=== PATIENT | female | born 2000 | race Caucasian/White ===

== ENCOUNTER 2024-03-27 14:37 | Emergency (ER) | payer OTHER, SELFPAY ==
[2024-03-27 14:44] VITALS: BP 124/71; PULSE 82; RESP 16; TEMP 36.8; O2SAT 100
--- NOTE | 2024-03-27 14:59 | ED_ITS ---
HPI - Female Genitourinary General Chief complaint: Urogenital-Female Stated complaint: STD Time Seen by Provider: 03/27/24 14:59 Source: patient, RN notes reviewed and old records reviewed Mode of arrival: ambulatory Limitations: no limitations History of Present Illness HPI Narrative: Patient who is sexually active, does not always use protection, presents with complaints fishy smelling vaginal discharge that is been present for about 4 days. She reports that she has an IUD, she is not worried about . She does report that symptoms are very different than that of yeast infections, which she has had in the past. She denies any abdominal pain. She denies any vaginal bleeding. Related Data Home Medications ?Medication ?Instructions ?Recorded ?Confirmed ?Last Taken ?Type bupropion HCl 300 mg 24 hr tablet, mg PO 03/27/24 Unknown History extended release sertraline 25 mg tablet mg 03/27/24 Unknown History Allergies Allergy/AdvReac Type Severity Reaction Status Date / Time No Known Allergies Allergy Verified 03/27/24 15:12 Review of Systems Review of Systems: All systems reviewed & are unremarkable except as noted in HPI and below Constitutional: Constitutional: Reports no additional constitutional complaints ENT: Reports system reviewed and no additional complaints, except as documented Cardiovascular: Cardiovascular: Reports no additional cardiovascular complaints Respiratory: Respiratory: Reports no additional respiratory complaints Gastrointestinal: Gastrointestinal: Reports no additional gastrointestinal complaints Genitourinary: Genitourinary: Reports no additional female genitourinary complaints and Reports as per HPI [facility] Comments At the time of my signature, I reviewed and agree with the nursing past medical, surgical, social, and family history. There is no relevant family history pertinent to the patient complaint. Exam Const: General: cooperative, no acute distress, alert and awake Orientat ion/consciousness: oriented to person, oriented to place and oriented to time HENMT: Head: normal to inspection Resp: Effort & Inspection: normal respiratory effort and able to speak in complete sentences Auscultation: clear to auscultation bilaterally, no crackles, no rales, no rhonchi and no wheezes Cardio: Palpation: normal PMI Rate: regular rate Rhythm: regular rhythm Heart sounds: S1 normal heart sound present and S2 normal heart sound present : General: Yes bladder normal to palpation and Yes no CVA tenderness Neuro: General: oriented to person, oriented to place and oriented to time Cranial nerves: Yes CN's II-XII intact bilaterally Psych: Appearance: grossly normal Thought process: Normal thought process present Insight: Good insight present (Psych) Judgement: Good judgement present (Psych) Course Course Level of Care: Express Care Visit Vital Signs Vital signs: Vital Signs Temperature 98.2 F 03/27/24 14:44 Pulse Rate 82 03/27/24 14:44 Respiratory Rate 16 03/27/24 14:44 Blood Pressure 124/71 03/27/24 14:44 Pulse Oximetry 100 03/27/24 14:44 Oxygen Delivery Room Air 03/27/24 14:44 Temperature 98.2 F 03/27/24 14:44 Pulse Rate 82 03/27/24 14:44 Respiratory Rate 16 03/27/24 14:44 Blood Pressure 124/71 03/27/24 14:44 Pulse Oximetry 100 03/27/24 14:44 Oxygen Delivery Room Air 03/27/24 14:44 Reviewed MDM - Female Genitourinary MDM Narrative Medical decision making narrative: Sexually active 23-year-old, screen for gonorrhea, chlamydia, trich. Treat presumptively for BV. Emergency department for new or worse symptoms. Discharge instructions reviewed with patient, as well as provided in writing per nursing staff. The instructions also include specific and strict return/GO TO THE ER as well as f/u information. All questions have been answered, and the patient deny any further questions with discharge and discharge plan. Some parts of this dictation were generated by voice recognition software and may contain typographical and/or grammatical inaccuracies. Differential Diagnosis Differential diagnosis: Likely bacterial vaginosis and trichomoniasis Medical Records Attestation: I reviewed the patient's medical records. Discharge Plan Discharge Clinical Impression: Bacterial vaginosis Patient Disposition: Home, Self-Care Condition: Stable Instructions: Antibiotic Form, Bacterial Vaginosis (ED) Patient Language: Czech Prescriptions: New metronidazole 500 mg tablet 500 mg PO Q12H Qty: 14 0RF No Action bupropion HCl 300 mg tablet extended release 24 hr PO sertraline 25 mg tablet Follow-up/Referrals: Baltazar Cueva MD [Primary Care Provider] - Time of Disposition: 15:17
[2024-03-28 09:35] LABS: Trichomonas Vag PCR NOT DETECTED (NOT DETECTE)
[2024-03-28 10:00] LABS: Chlamydia trachomatis NOT DETECTED (NOT DETECTE); Neisseria gonorrhoeae PCR NOT DETECTED (NOT DETECTE)
== END 2024-03-27 15:25 | disposition home or self-care (01) ==
PROVIDERS: Emergency Provider Nurse Practitioner Family; PCP Pediatrics
DX: N76.0 Acute vaginitis (principal); Z11.3 Encounter for screening for infections with a predominantly sexual mode of transmission; Z97.5 Presence of (intrauterine) contraceptive device
CPT/HCPCS: 87491; 87591; 87661; 99213; G0463

== ENCOUNTER 2025-02-27 08:17 | Emergency (ER) | payer OTHER, SELFPAY ==
--- NOTE | 2025-02-27 08:26 | ED_ITS ---
HPI - Female Genitourinary General Chief complaint: Urogenital-Female Stated complaint: UTI Source: patient Mode of arrival: ambulatory Limitations: no limitations History of Present Illness HPI Narrative: this is a 24 y/o female that presents to urgent care with reports of frequency and dsyuria since 02/25/25. She has been taking AZO since. denies any distress otherwise MD elicited complaint: dysuria and UTI Quality of pain: burning Consistency: intermittent Vaginal discharge: none Vaginal bleeding: none Urinary symptoms: Dysuria, Urgency and Frequency Exacerbating factors: none Relieving factors: none Associated symptoms: denies other symptoms Treatment prior to arrival: OTC urinary analgesics Sexual activity: No Patient : No Related Data Home Medications ?Medication ?Instructions ?Recorded ?Confirmed ?Last Taken ?Type bupropion HCl 300 mg 24 hr tablet, mg PO 03/27/24 Unk nown History extended release sertraline 25 mg tablet mg 03/27/24 Unknown History Allergies Allergy/AdvReac Type Severity Reaction Status Date / Time No Known Allergies Allergy Verified 02/27/25 08:18 Review of Systems Review of Systems: All systems reviewed & are unremarkable except as noted in HPI and below Exam Const: General: healthy appearing Nutritional Appearance: well nourished Orientation/consciousness: patient oriented x3 Limitations: no limitations HENMT: Head: normal to inspection Ears: external ears normal Face/Nose/Sinus: Normal external nose present Face and sinus: normal facial exam Mouth: Yes Normal oral and palatal mucosa present Teeth and gingiva: dentition normal Throat: posterior oropharynx normal Eyes: Conjunctivae: conjunctivae normal Pupils: Equal, round and reactive pupils present EOM: EOMs intact bilaterally Direct Ophthalmoscopy: no photophobia Neck: Neck: normal visual inspection Resp: Effort & Inspection: normal respiratory effort Auscultation: clear to auscultation bilaterally Cardio: Rate: regular rate Rhythm: regular rhythm GI: GI Palp: Yes Soft to palpation Auscultation: normal bowel sounds : General: Yes Bladder palpation abnormal tender and Yes no CVA tenderness Back/Spine/Pelvis: Back: no CVA tenderness Skin: General skin exam: normal color Rashes: no rashes Wounds: no wounds Neuro: General: patient oriented x3 Cranial nerves: Yes Nystagmus not present Speech: normal speech Gait exam (Neuro): Normal gait present Extrem: General: normal to inspection Psych: Appearance: grossly normal Mental Status: mental status grossly normal Affect: normal affect Course Course Emergency Course: this is a 24 y/o female that presents to urgent care with reports of frequency and dsyuria since 02/25/25. She has been taking AZO since. denies any distress otherwise Unstable arrival she is afebrile. Patient has been taking azo per package instructions for 48 hours, urine dip would not be appropriate, so urine culture was sent for evaluation. educated patient that we will pre treat her with cefdinir 300 mg p.o. b.i.d. for the next 7 days, await culture results. Educated to continue with azo, increased fluids, follow-up with primary care provider with any worsening symptoms or return to the emergency department. Answered all questions to her satisfaction she is agreeable with plan. She denies any further needs or concerns to be addressed prior to discharge Level of Care: Express Care Visit Vital Signs Vital signs: Vital Signs Temperature 97.5 F L 02/27/25 08:27 Pulse Rate 91 02/27/25 08:27 Respiratory Rate 18 02/27/25 08:27 Blood Pressure 126/69 02/27/25 08:27 Pulse Oximetry 100 02/27/25 08:27 Oxygen Delivery Room Air 02/27/25 08:27 Temperature 97.5 F L 02/27/25 08:27 Pulse Rate 91 02/27/25 08:27 Respiratory Rate 18 02/27/25 08:27 Blood Pressure 126/69 02/27/25 08:27 Pulse Oximetry 100 02/27/25 08:27 Oxygen Delivery Room Air 02/27/25 08:27 [facility] MDM Narrative Medical decision making narrative: this is a 24 y/o female that presents to urgent care with reports of frequency and dsyuria since 02/25/25. She has been taking AZO since. denies any distress otherwise Unstable arrival she is afebrile. Patient has been taking azo per package instructions for 48 hours, urine dip would not be appropriate, so urine culture was sent for evaluation. educated patient that we will pre treat her with cefdinir 300 mg p.o. b.i.d. for the next 7 days, await culture results. Educated to continue with azo, increased fluids, follow-up with primary care provider with any worsening symptoms or return to the emergency department. Answered all questions to her satisfaction she is agreeable with plan. She denies any further needs or concerns to be addressed prior to discharge Differential Diagnosis Differential Diagnosis: UTI frequency Medical Records I have reviewed the following patient records and this information was taken into consideration when formulating the assessment and plan.: previous labs and previous clinic visits Lab Data MDM Lab Attestation statement: I personally reviewed the patient's lab results. Lab results narrative: urine culture Discharge Plan Discharge Clinical Impression: Urinary tract infection Qualifiers: Urinary tract infection type: site unspecified Hematuria presence: without hematuria Qualified Code(s): N39.0 - Urinary tract infection, site not specified Patient Disposition: Home Condition: Stable Instructions: Antibiotic Form, Urinary Tract Infection in Women (ED) Additional Instructions: take cefdinir 300 mg p.o. b.i.d. for the next 7 days, continue with azo, increase fluids, follow-up with primary care provider with any worsening symptoms or return to the emergency department. Patient Language: Faroese Prescriptions: New cefdinir 300 mg capsule 300 mg PO Q12H Qty: 14 0RF No Action bupropion HCl 300 mg tablet extended release 24 hr PO sertraline 25 mg tablet Follow-up/Referrals: Donita,Zina Samano, [employer] [Primary Care Provider, Unknown] Time of Disposition: 08:44
[2025-02-27 08:27] VITALS: BP 126/69; PULSE 91; RESP 18; TEMP 36.4; O2SAT 100
== END 2025-02-27 08:53 | disposition home or self-care (01) ==
PROVIDERS: Emergency Provider Nurse Practitioner Family
DX: N39.0 Urinary tract infection, site not specified (principal)
CPT/HCPCS: 87086; 99213; G0463